=== PATIENT | male | born 1975 | race African-American/Black ===

== ENCOUNTER 2021-10-23 21:36 | Emergency (ER) | payer SELFPAY ==
[~2021-10-23] VITALS: Ht 172.7 cm; Wt 64.9 kg
--- NOTE | 2021-10-23 21:50 | NUR ---
DR Calderon into eval patient.
--- NOTE | 2021-10-23 22:05 | NUR ---
Patient down for ct scan via [facility] with critical transport.
[2021-10-23] MEDS ORDERED: SWABABLE VALVE TRANSFER SET EA MC ONE (22:14)
[2021-10-23] MEDS ORDERED: IOHEXOL 350 100 ML INFUS..BTL ONE (22:14)
[2021-10-23] MEDS ORDERED: IV NORMAL SALINE 250 ML IV ONE (22:14)
[2021-10-23 22:22] LABS: HEMATOCRIT 32.5 % (36.7-47.1); MEAN CORPUSCULAR HEMOGLOBIN 27.1 uug (23.8-33.4); MEAN CORPUSCULAR VOLUME 80.7 fL (73.0-96.2); PLATELET COUNT (AUTO) 225 K/uL (152-348)
--- NOTE | 2021-10-23 22:26 | NUR ---
Patient back from ct scan with no distress noted.
[2021-10-23] MEDS ORDERED: ALTEPLASE 100MG 100 ML IV ONE (22:28)
[2021-10-23] MEDS ORDERED: ALTEPLASE 100 MG/100 ML VIAL IV ONE (22:30)
[2021-10-23] MEDS ORDERED: ALTEPLASE BOLUS DOSE IV ONE (22:30)
[2021-10-23 22:39] LABS: CARBON DIOXIDE 25 mmol/L (21-32); CHLORIDE 104 mmol/L (98-107); CREATININE 0.9 mg/dL (0.6-1.3); GLUCOSE 112 mg/dL (74-106); UREA NITROGEN, BLOOD 7 mg/dL (7-18)
[2021-10-23] MEDS ORDERED: HYDROMORPHONE 1 MG/1 ML DISP.SYRIN IV ONE (22:45)
[2021-10-23] MEDS ORDERED: diphenhydrAMINE 50 MG/1 ML VIAL IV ONE (22:45)
[2021-10-23] MEDS ORDERED: METOCLOPRAMIDE HCL 10 MG/2 ML VIAL IV ONE (22:45)
[2021-10-23] MEDS ORDERED: IV NS 1000 ML 1,000 ML IV ONE (22:45)
[2021-10-23] MEDS ORDERED: KETOROLAC TROMETHAMINE 30 MG INJ IVP ONE (22:45)
[2021-10-23] MEDS ORDERED: hydrALAZINE HCL 20 MG/1 ML VIAL IV ONE (22:45)
[2021-10-23] MEDS ORDERED: KETOROLAC TROMETHAMINE 30 MG INJ ONE (22:56)
[2021-10-23] MEDS ORDERED: diphenhydrAMINE 50 MG/1 ML VIAL ONE (22:56)
[2021-10-23] MEDS ORDERED: hydrALAZINE HCL 20 MG/1 ML VIAL ONE (22:56)
[2021-10-23] MEDS ORDERED: METOCLOPRAMIDE HCL 10 MG/2 ML VIAL ONE (22:56)
[2021-10-23] MEDS ORDERED: HYDROMORPHONE 2 MG/1 ML DISP.SYRIN ONE (22:57)
[2021-10-23 23:03] VITALS: BP 176/89
--- NOTE | 2021-10-23 23:09 | NUR ---
call to [facility] for admission.
--- NOTE | 2021-10-23 23:10 | NUR ---
Started TPA infsuion as Dr Cheatham ordered
--- NOTE | 2021-10-23 23:15 | NUR ---
Dr Cheatham spoke with Tele Neurology, Dr David Griffin who recommend TPA.
--- NOTE | 2021-10-23 23:18 | NUR ---
Dr. Ding called back for admisison.
[2021-10-23] MEDS ORDERED: MORPHINE SULFATE 2 MG/1 ML DISP.SYRIN IV PRN (23:30)
[2021-10-23] MEDS ORDERED: hydrALAZINE HCL 20 MG/1 ML VIAL IV PRN (23:30)
[2021-10-23] MEDS ORDERED: ACETAMINOPHEN 325 MG TABLET PO PRN (23:30)
[2021-10-23] MEDS ORDERED: ONDANSETRON 4 MG/2 ML VIAL IV PRN (23:30)
--- NOTE | 2021-10-23 23:33 | NUR ---
Dr. Ding called back he initially placed pt as tele status but pt needs to be icu as he is receiving tpa. he states it is ok to change status.
[2021-10-23] MEDS ORDERED: GABA600T12 PO (23:43)
[2021-10-23] MEDS ORDERED: OXYC20TA58 PO (23:43)
[2021-10-23] MEDS ORDERED: PRAV40TA3 PO (23:43)
--- NOTE | 2021-10-24 00:16 | NUR ---
After TPA bottle was empty with medication, 50ml of NS was hung to infuse all medication from iv line.
--- NOTE | 2021-10-24 01:00 | NUR ---
Patient able to lift up left leg for 5 second and able to move left upper extremity.
--- NOTE | 2021-10-24 01:22 | NUR ---
Called [facility] and spoke to Laurita who requested facesheet and clinicals to be faxed to .
[2021-10-24] MEDS ORDERED: HYDROMORPHONE 2 MG/1 ML DISP.SYRIN ONE ×2 (01:26→03:48)
[2021-10-24] MEDS ORDERED: HYDROMORPHONE 1 MG/1 ML DISP.SYRIN IV ONE ×2 (01:30→04:00)
--- NOTE | 2021-10-24 03:55 | NUR ---
Gave SBAR report to [facility] ambulance with [place] nurse who will transport patient to [place].
--- NOTE | 2021-10-24 03:58 | NUR ---
Patient transport to [place] via [facility] with no distress noted. Accepting MD is Madeleine Bassett
[2021-10-24] MEDS ORDERED: DOCUSATE SODIUM 100 MG CAPSULE PO SCH (09:00)
== END 2021-10-24 04:00 | disposition short-term general hospital (02) ==
LOC: ER 21:39
DX: I63.9 Cerebral infarction, unspecified (principal); R47.1 Dysarthria and anarthria; G81.94 Hemiplegia, unspecified affecting left nondominant side; H53.8 Other visual disturbances; R29.703 NIHSS score 3; Z20.822 Contact with and (suspected) exposure to COVID-19; Z85.830 Personal history of malignant neoplasm of bone; Z89.202 Acquired absence of left upper limb, unspecified level; Z88.5 Allergy status to narcotic agent; F43.10 Post-traumatic stress disorder, unspecified; Q21.1 Atrial septal defect; G89.29 Other chronic pain; Z92.3 Personal history of irradiation
CPT/HCPCS: 99291; 70496; 96374; 96375; 71045; 80061; 80048; 82962; 83036; 83735; 85025; 85730; 84484; 36415; 93005; 70498; 83605; 87426; 87081; 96376; 70450; J2997; J0360; J1885; J2765; Q9967; J1170 ×3; J7040; A4663; J1200